=== PATIENT | male | born 1970 | race Caucasian/White ===

== ENCOUNTER 2017-08-08 15:21 | Emergency (ER) | payer MEDICAID ==
[~2017-08-08] VITALS: Ht 180.3 cm; Wt 81.6 kg
[2017-08-08 15:40] VITALS: BP 118/81
[2017-08-08] MEDS ORDERED: IBUPROFEN 600 MG TABLET PO ONE ×2 (16:11→16:30)
== END 2017-08-08 16:15 | disposition home or self-care (01) ==
LOC: ER 15:24
DX: R51 Headache (principal); M54.2 Cervicalgia; F10.10 Alcohol abuse, uncomplicated; V49.49XA Driver injured in collision with other motor vehicles in traffic accident, initial encounter; Y93.89 Activity, other specified; Y92.410 Unspecified street and highway as the place of occurrence of the external cause; Y99.8 Other external cause status
CPT/HCPCS: A4606; Z7610

== ENCOUNTER 2019-02-18 10:31 | Emergency (ER) | payer SELFPAY ==
[~2019-02-18] VITALS: Ht 182.9 cm; Wt 72.6 kg
[2019-02-18 10:39] VITALS: BP 112/72
== END 2019-02-18 11:00 | disposition home or self-care (01) ==
LOC: ER 10:32
DX: M54.12 Radiculopathy, cervical region (principal); F32.9 Major depressive disorder, single episode, unspecified; F10.10 Alcohol abuse, uncomplicated; Z98.890 Other specified postprocedural states; Y90.9 Presence of alcohol in blood, level not specified